=== PATIENT | female | born 1960 | race Caucasian/White ===

== ENCOUNTER 2018-09-18 00:04 | Emergency (ER) | payer OTHER ==
[2018-09-18 00:10] VITALS: BP 161/85
--- NOTE | 2018-09-18 00:47 | EDPHY ---
H & P Stated Complaint: ROLLED LEFT ANKLE AT WORK AROUND 1400 Time Seen by Provider: 09/18/18 00:14 HPI/ROS: HPI: The patient presents with left ankle pain which began at about 2:00 p.m. Today. The patient works at [employer] and was parking her car on the street. She was walking from her car into the facility and walked down a snow bank but unfortunately slipped and fell landing on her left ankle. She had pain immediately but was able to ambulate and went to work to finish her shift. However she had ongoing aching ankle pain throughout her ankle which was worse when she put weight on it. She is not aware of any previous ankle injuries. REVIEW OF SYSTEMS 10 systems were reviewed and negative with the exception of the elements mentioned in the history of present illness. PMHx: History of cholecystectomy, depression, anxiety TRAUMA PHYSICAL General Appearance: Alert, no distress Head: Atraumatic Respiratory: Breathing comfortably Skin: No lacerations, No abrasion Extremities: Left ankle is diffusely edematous and slightly erythematous with tenderness to palpation overlying the lateral malleolus with limited range of motion secondary to pain, she has 2+ DP pulses and full range of motion of her toes with sensation intact to light touch of her foot Neurological: A&Ox3, GCS=15,normal motor function with 5/5 strength in all 4 extremities, normal sensory exam Source: Patient Exam Limitations: No limitations - Personal History Current Tetanus/Diphtheria Vaccine: Yes Current Tetanus Diphtheria and Acellular Pertussis (TDAP): Yes - Medical/Surgical History Hx Asthma: No Hx Chronic Respiratory Disease: No Hx Diabetes: No Hx Cardiac Disease: No Hx Renal Disease: No Hx Cirrhosis: Yes Hx Alcoholism: No Hx HIV/AIDS: No Hx Splenectomy or Spleen Trauma: No Other PMH: HYPOTHYROID. ANXIETY. DEPRESSION. CHOLESECTOMY - Social History Smoking Status: Never smoked Constitutional: Initial Vital Signs Temperature (C) 36.9 C 09/18/18 00:07 Heart Rate 62 09/18/18 00:07 Respiratory Rate 16 09/18/18 00:07 Blood Pressure 161/85 H 09/18/18 00:07 O2 Sat (%) 98 09/18/18 00:07 O2 Delivery Mode Room Air Allergies/Adverse Reactions: Sulfa (Sulfonamide Antibiotics) Allergy (Verified 09/18/18 00:10) Home Medications: Medication Instructions Recorded Prozac 10 MG (*) 09/18/18 Synthroid 09/18/18 Wellbutrin 100mg (*) 09/18/18 Medical Decision Making - Diagnostics Imaging Results: Imaging Impressions Ankle X-Ray 09/18/18 00:20 Impression: Mildly displaced spiral fracture through the distal fibular metadiaphyseal junction. Imaging: I viewed and interpreted images myself Procedures: SPLINT Procedure: Splint placement. A ortho glass posterior short-leg splint was applied to the left ankle by the tech. After application of the splint I returned and re-examined the patient. The splint was adequately immobilizing the joint and distal to the splint the patient's circulation and sensation was intact. Differential Diagnosis: 58-year-old healthy female presents with a fall which occurred at 2:00 p.m. Today with ongoing left ankle pain. On exam has edema of the ankle with limited range of motion secondary to pain and tenderness laterally. X-rays reveal distal fibular fracture. We will place her in a splint and make her nonweightbearing. She will follow up with Orthopedics. We have discussed rest , ice, elevation, Tylenol as needed for pain. Departure - Departure Disposition: Home, Routine, Self-Care Clinical Impression: Fibula fracture Qualifiers: Encounter type: initial encounter Fibula location: distal Fracture type: closed Fracture morphology: unspecified fracture morphology Laterality: left Qualified Code(s): S82.832A - Other fracture of upper and lower end of left fibula, initial encounter for closed fracture Condition: Good Instructions: Ankle Fracture (ED), R.I.C.E. Treatment (ED) Additional Instructions: I recommend you take Tylenol 1000 mg every 6 hr as needed for pain. You should elevate her ankle as much as possible during the day. You should use crutches to help with the pain. You should keep the splint on at all times. You will need to call the orthopedist listed below to arrange for a follow-up appointment. You should use crutches and the splint until then. Return to the emergency department if worse in any way. Referrals: MADDY VELAZQUEZ [Other] - As per Instructions [place] Stapleton MD [Medical Doctor] - As per Instructions
== END 2018-09-18 01:39 | disposition home or self-care (01) ==
PROC: 2W3RX1Z Immobilization of Left Lower Leg using Splint (ICD-10-PCS; principal; 2018-09-18)
DX: S82.832A Other fracture of upper and lower end of left fibula, initial encounter for closed fracture (principal); W00.9XXA Unspecified fall due to ice and snow, initial encounter; Y99.0 Civilian activity done for income or pay; Y93.01 Activity, walking, marching and hiking; Y92.9 Unspecified place or not applicable